=== PATIENT | male | born 1990 | race Caucasian/White ===

== ENCOUNTER 2017-09-10 14:27 | Emergency (ER) | payer BC ==
[~2017-09-10] VITALS: Ht 182.9 cm; Wt 87.0 kg
[2017-09-10 14:35] VITALS: BP 142/88; PULSE 117; RESP 20; TEMP 99.3; O2SAT 98
--- NOTE | 2017-09-10 16:06 | RADRPT ---
EXAM DATE/TIME: 09/10/2017 14:55 [facility] COMPARISON: No previous studies available for comparison. INDICATIONS : Joint pain. Fell off skateboard. MEDICAL HISTORY : None. SURGICAL HISTORY : None. ENCOUNTER: Initial ACUITY: 1 day PAIN SCORE: 10/10 LOCATION: Left Wrist. FINDINGS: There is a vertical fracture through the distal aspect of the radius extending into the radiocarpal j oint. Significant displacement is not seen. Radiocarpal joint is normally aligned. CONCLUSION: Distal radial fracture. Merrill Hobbs MD on September 10, 2017 at 16:02 Board Certified Radiologist. This report was verified electronically.
--- NOTE | 2017-09-10 17:14 | PD ---
HPI Chief Complaint: Injury Time Seen by Provider: 17:01 Travel History International Travel<30 days: No Contact w/Intl Traveler<30days: No Traveled to known affect area: No History of Present Illness HPI 27-year-old male here for evaluation of left wrist injury. The patient fell skateboarding this afternoon onto an outstretched left arm. His pain is mainly in his left wrist over his left distal radius. Pain is moderate, constant, worse with movements and palpation, improved with rest. He has not taken anything for the pain. He denies any other injuries. No head injury or LOC. No head neck or back pain. He is right-hand dominant. No paresthesias. PFSH Past Medical History Respiratory: Yes (ASTHMA) Social History Tobacco Use: No Allergies-Medications (Allergen,Severity, Reaction): Coded Allergies: Penicillins (Verified Allergy, Unknown, 09/10/17) amoxicillin (Verified Allergy, Unknown, 09/10/17) Reported Meds & Prescriptions Reported Meds & Active Scripts Active Hydrocodone-Acetaminophen 5-325 mg Tab 1 Tab PO Q6H PRN Review of Systems Except as stated in HPI: all other systems reviewed are Neg Physical Exam Narrative GENERAL: Well-developed, well-nourished, comfortable, no apparent distress. SKIN: Focused skin assessment warm/dry. No lacerations, abrasions, or ecchymosis. HEAD: Atraumatic. Normocephalic. EYES: Pupils equal and round. No scleral icterus. No injection or drainage. ENT: Mucous membranes pink and moist. NECK: Trachea midline. No JVD. No midline cervical spine step-off or tenderness. CARDIOVASCULAR: Regular rate and rhythm. Bilateral distal radial pulses are brisk and equal. Normal capillary refill in left hand and fingers. RESPIRATORY: No accessory muscle use. MUSCULOSKELETAL: Left distal radius/wrist with mild swelling with moderate diffuse tenderness without obvious deformity with limited range of motion in the left wrist secondary to pain. All compartments in the left forearm are supple. Left upper extremity is neurovascularly intact. The rest of his joints and extremities are without deformity, without tenderness, with normal range of motion. No left hand tenderness or snuffbox tenderness. NEUROLOGICAL: Awake and alert. No obvious cranial nerve deficits. Motor grossly within normal limits. Normal speech. PSYCHIATRIC: Appropriate mood and affect; insight and judgment normal. Data Data Last Documented VS Vital Signs Date Time Temp Pulse Resp B/P (MAP) Pulse Ox O2 Delivery O2 Flow Rate FiO2 09/10/17 17:52 Room Air 09/10/17 14:35 99.3 117 20 142/88 (106) 98 Orders Orders Wrist, Complete ([id number]) (09/10/17 ) Ibuprofen (Motrin) (09/10/17 17:15) Radiology Film Requests (09/10/17 ) Splinting (09/10/17 ) Sling Cradle Arm (09/10/17 ) Ed Discharge Order (09/10/17 17:30) MDM Medical Decision Making Medical Screen Exam Complete: Yes Emergency Medical Condition: Yes Differential Diagnosis Left wrist fracture versus sprain versus contusion Narrative Course Left wrist x-ray: Nondisplaced fracture through the distal radius that is intra-articular. Case discussed with orthopedist CHERELLE De Anda covering for her orthopedist Dr. Hitchcock. Recommends sugar tong splint and follow-up with orthopedics in 1 week. Patient is from [place] and will find an orthopedist back in [place]. He will also be placed in a sling and was advised to remove his arm from the sling every couple of hours to range his shoulder to prevent a frozen shoulder. He will also be given a prescription for hydrocodone and was informed about the side effects of this medication. He was advised on when to return to the emergency department. He verbalizes understanding and agreement with plan. Diagnosis Primary Impression: Closed fracture of left distal radius Qualified Codes: S52.592A - Other fractures of lower end of left radius, initial encounter for closed fracture Referrals: Wes Hitchcock MD 3 days Orthopedist Orthopedist 3 days Primary Care Physician 3 days Additional Instructions: Follow-up with your primary care physician this week. Follow-up with an orthopedist this week. Return to the emergency department for worsening symptoms or any other concerns. Scripts Hydrocodone-Acetaminophen (Hydrocodone-Acetaminophen) 5-325 mg Tab 1 TAB PO Q6H Y for PAIN, #12 TAB 0 Refills Prov: Vic Neely MD 09/10/17 Disposition: 01 DISCHARGE HOME Condition: Stable Vic Neely MD Sep 10, 2017 17:14
[2017-09-10] MEDS ORDERED: IBUPROFEN 600 MG TAB PO ONE (17:15)
[2017-09-10] MEDS ORDERED: HYDR-3516 PO (17:29)
== END 2017-09-10 18:12 | disposition home or self-care (01) ==
LOC: NEPD 14:27
DX: S52.502A Unspecified fracture of the lower end of left radius, initial encounter for closed fracture (principal); V00.131A Fall from skateboard, initial encounter; Z88.0 Allergy status to penicillin
CPT/HCPCS: 29125; 73110